=== PATIENT | female | born 1990 | race Caucasian/White ===

== ENCOUNTER 2019-07-08 06:52 | Inpatient (IN) | payer OTHER ==
[2019-07-08] VITALS (18 sets, daily range): BP systolic 94–137; BP diastolic 49–783; PULSE 48–80; TEMP 97.7–98.6
[~2019-07-08] VITALS: Ht 165.1 cm; Wt 95.9 kg
[~2019-07-08 06:52] MED LIST: MOTRIN 600600 MG/TAB PO; NORCO 325 MG-51 TAB PO; PRENATAL1 TA7 PO; SYNTHROID0.2 MG/TAB PO
--- NOTE | 2019-07-08 07:00 | NUR ---
Patient ambulatory onto unit for labor check with report of gush of fluid with continued leaking. at side. Patient into LR4, oriented to room, plan of care discussed, changed into gown. Patient reports good movement and regular contractions every 5 minutes. States large gush of fluid occurred at 0530, patient did note pink tinge with fluid but denies other vaginal bleeding. EFMs on, VS taken. SVE /-2 per D.Sin RN, moderate amount of clear fluid noted with exam. notified, orders received for repeat section. IV started by Qian LORENZO at 0715 in left wrist, LR bolusing. Admission assessment completed, consents signed. Victor M LORENZO assumes care at 0725.
[2019-07-08] MEDS ORDERED: SYNTHROID0.175 MG PO (07:09)
[2019-07-08] MEDS ORDERED: NATURAL IRON65 MG (07:09)
[2019-07-08 07:39] LABS: BASO % 0.2 % (0.0-2.0); EOS # 0.1 (0.0-0.7); EOS % 0.7 % (0-4.0); GRAN # 6.4 (1.4-6.5); GRAN % 70.3 % (42.2-75.2); HEMATOCRIT 37.2 % (37.0-47.0); HEMOGLOBIN 12.4 g/dl (12.5-16.0); LYMPH % 21.5 % (20.0-51.0); MEAN CELL VOLUME 93 fl (80.0-100.0); MEAN CORPUSCULAR HEMOGLOBIN 31 pg (27.0-31.0); MEAN CORPUSCULAR HGB CONC 33 g/dl (33.0-37.0); MEAN PLATELET VOLUME 11.1 fl (7.4-10.4); MONO # 0.6 (0.1-0.6); MONO % 6.9 % (1.7-9.3); PLATELET COUNT 198 K/mm3 (130-400); RED BLOOD COUNT 4.02 M/mm3 (4.10-5.30); REDCELL DISTRIBUTION WIDTH-CV 13.8 % (11.5-14.5)
--- NOTE | 2019-07-08 14:30 | NUR ---
Patient sits on edge of bed and dangles feet, ambubulates to bathroom with standby assist. Rincon catheter removed and patient tolerates well. Pericare done, new gown/underwear/pad on. Plan of care discussed.
[2019-07-09 04:45] VITALS: BP 129/85; PULSE 56; TEMP 98
[2019-07-09] MEDS ORDERED: IBU600 MG PO (06:27)
[2019-07-09] MEDS ORDERED: NORCO 325 MG-51 TAB PO (06:27)
[2019-07-09 07:52] VITALS: BP 117/74; PULSE 53; TEMP 98
--- NOTE | 2019-07-09 12:44 | NUR ---
Initial visit; Mom indisposed, Supplier Diversity Director introduced herself to Dad and offered congratulations and God's blessings to their family for the of their daughter.
[2019-07-09 16:42] VITALS: BP 120/80; PULSE 57; TEMP 98.1
[2019-07-09 19:30] VITALS: BP 127/74; PULSE 60; TEMP 98.8
[2019-07-10 08:30] VITALS: BP 132/76; PULSE 66; TEMP 98.2
== END 2019-07-10 14:00 | disposition home or self-care (01) | DRG 788 ==
LOC: LDRO 06:52 → LDR 07:20 → OB 07:20
PROVIDERS: ADMIT Obstetrics & Gynecology
PROC: 10D00Z1 Extraction of Products of Conception, Low, Open Approach (ICD-10-PCS; principal; 2019-07-08)
DX: O34.211 Maternal care for low transverse scar from previous cesarean delivery (principal); O99.284 Endocrine, nutritional and metabolic diseases complicating childbirth; E03.9 Hypothyroidism, unspecified; O99.62 Diseases of the digestive system complicating childbirth; K21.9 Gastro-esophageal reflux disease without esophagitis; Z90.49 Acquired absence of other specified parts of digestive tract; Z3A.38 38 weeks gestation of pregnancy; Z37.0 Single live birth
CPT/HCPCS: J0171; J0690; J1885; J2175; J2250; J2370; J2405; J2590; J3010; J7120